=== PATIENT | female | born 1960 | race Caucasian/White ===

== ENCOUNTER 2025-06-02 09:27 | Observation (INO) | payer MEDICAID, SELFPAY ==
[2025-06-02] VITALS (8 sets, daily range): BP systolic 114–142; BP diastolic 70–88; PULSE 72–92; RESP 12–95; TEMP 36.7–37.1; O2SAT 95–99; BMI 29.0
--- NOTE | 2025-06-02 | XR_ITS ---
Examinations: MRI Brain without intravenous contrast. MRA brain without intravenous contrast. MRA carotids without intravenous contrast 3-D vascular reconstructions Date and time of exam: 06/02/2025, 4:05 p.m. Indication: History of multiple strokes. Altered mental status and new onset right facial droop. Fall on 05/30/2025 with progressive forgetfulness and generalized weakness over time. Technique: Multiple axial and sagittal images of the brain have been obtained MRA brain carotid images without contrast obtained, including 3-D postprocessing, vascular maximum intensity projection images Findings: Brain MRI: DWI is negative for acute or subacute ischemic infarction, abscess or other pathology. There is no evidence for acute or subacute intra-axial or extra-axial hemorrhage or mass. A very small focus of susceptibility in the medial left occipital lobe on SWI could potentially represent a small focus of chronic hemosiderin deposition. There is no corresponding calcification on the same day head CT. No midline shift or hydrocephalus. Redemonstration of generalized cerebral atrophy, and signal changes throughout the white matter of both treatment hemispheres that are nonspecific but most likely represent sequela of chronic ischemic microangiopathy in this age demographic. The signal changes correlate with the hypoattenuation in the white matter on the preceding head CT. Posterior fossa structures are intact and unremarkable. The major intracranial vascular flow voids are well-maintained. No concerning pituitary enlargement. MRA carotid images: Image quality is degraded by patient motion. However, the bilateral carotid arteries and vertebral arteries appear widely patent with intact flow related signal. Antegrade flow noted in both vertebral arteries. No aneurysmal dilatation. MRA brain images: Normal: No evidence for significant stenosis, branch occlusion, aneurysm or high flow vascular malformation involving the major arteries of the anterior and posterior circulation. Other: Severe left maxillary sinusitis with near complete T2 hyperintense signal due to mucosal hypertrophy throughout the left maxillary sinus. There is severe left sphenoid, ethmoid signal are present fluid signal is identified in the left-sided mastoid air cells which could be due to entrapped fluid or mucosal hypertrophy from prior inflammation. The calvarium and scalp are unremarkable. Impression: Brain MRI is negative for evidence for recent ischemic infarction, hemorrhage, or intracranial mass. No evidence for significant stenosis, occlusion or aneurysm related to the intracranial and extracranial circulation on MRA. Redemonstration of severe left-sided sinusitis. Chronic ancillary findings as above.
--- NOTE | 2025-06-02 09:39 | EKG_ITS ---
[facility] Test Date: 2025-06-02 Pat Name: YOKASTA PACHECO Department: Room: - Gender: Female Roll Grinder: : 1960 Requested By: Aida Chu Order Number: [id number] Reading MD: Aida Chu Measurements Intervals [place] Rate: 87 P: 61 OR: 152 QRS: -18 QRSD: 96 T: 59 QT: 372 QTc: 449 Interpretive Statements SINUS RHYTHM VOLTAGE CRITERIA FOR LVH [MEETS CRITERIA IN ONE OF: R(aVL), S(V1), R(V5), R(V5/V6)+S(V1)] NONSPECIFIC T-WAVE ABNORMALITY No previous ECG available for comparison /store/S0/[id number].pdf
--- NOTE | 2025-06-02 09:40 | PC.NURSE ---
[facility] facility pt. was ALMS this morning and having facial droop. Pt. able to state her name but unable to state her birthday and when asked where she was pt. stated [facility]. Informed pt. she was at [facility]. No s/s of distress and no facial droop at this time.
--- NOTE | 2025-06-02 09:43 | XR_ITS ---
CLINICAL INDICATION: altered, r/o aspiration pneumonia TECHNIQUE: XR chest 1V portable Exam date and time: 06/02/2025, 9:57 a.m. COMPARISON: Chest radiographs 04/21/2022 FINDINGS: The cardiomediastinal silhouette is within normal limits of size for portable technique. No evidence for acute congestive heart failure. Redemonstration of remote median sternotomy changes with aortic valve prosthesis in place. Retained epicardial leads noted. Hypoventilatory changes with otherwise no significant pleural-parenchymal abnormality. No airspace consolidation. No mass. No pleural effusion or pneumothorax. Degenerative changes of the skeletal structures. No apparent acute osseous abnormality. IMPRESSION: No radiographic evidence for acute cardiopulmonary abnormality. No evidence for aspiration pneumonia as questioned. Chronic ancillary findings as above. No significant change since prior exam. - This report was generated utilizing speech recognition software. -
--- NOTE | 2025-06-02 09:44 | EDNOTE_ITS ---
<Statement entered by Jolanta Thompson MD - 06/03/25 16:15> I, Jolanta Thompson MD, have reviewed the history, exam, and assessment of the patient. I have evaluated the patient independently and agree with the plan of care documented by [ ]. All diagnostic studies were reviewed and discussed. I confirm the diagnosis as documented by the Resident. I was present during the Medical Decision Making for this patient. The patient's plan of care was created between myself and the Resident and consistent with our discussion of the patient's case. Altered Mental Status RME/HPI General Chief Complaint: Altered Mental Status Stated Complaint: AMS Time Seen by Provider: 06/02/25 09:45 Arrival date/time: 06/02/25 09:27 RME / HPI RME / HPI narrative: cc: altered Patient is a 65 year old female with a past medical history of HTN, HLD, diabetes mellitus type 2 insulin dependent, history of CAD s/p bypass, history of asthma, hx of DVT and PE who is mostly non-ambulatory secondary to ge neralized weakness and requires a wheel chair who presented to the emergency room with via EMS with chief complain of altered mental status. [facility] was contacted as limited history was gathered from patient. Per nurse, Grady, at [facility], patient was noted to have a right facial droop this morning. Last well known time was 06/01/2025 at 9:00 PM. Patient at baseline is alert and orientated X 3. Stroke alert not activated as no focal neuro deficits noted on physical exam. Out of window. NIHSS 4 CT head ordered CMP, CBC, UA Related Data Home Medications ?Medication ?Instructions ?Recorded ?Confirmed acarbose 50 mg tablet 50 mg PO TIDWM Diabetes #0 t abs 10/23/15 04/16/19 glimepiride 4 mg tablet (Amaryl) 4 mg PO QAM Diabetes #0 tabs 10/23/15 04/16/19 metformin 1,000 mg tablet 1,000 mg PO BID Diabetes #0 tabs 10/23/15 04/16/19 (Glucophage) oxybutynin chloride 5 mg tablet 5 mg PO BID BLADDER CO NTROL #0 tabs 10/23/15 04/16/19 simvastatin 40 mg tablet (Zocor) 40 mg PO QPM High Cho lesterol #0 10/23/15 04/16/19 tabs trazodone 100 mg tablet 100 mg PO QDAY Depression #0 tabs 10/23/15 04/16/19 sertraline 100 mg tablet 100 mg PO QDAY 04/16/1903/30 Previous Rx's ?Medication ?Instructions ?Recorded ibuprofen 800 mg tablet 800 mg PO Q6H PRN pain #30 t abs 04/08/19 metformin 500 mg tablet 1,000 mg (2 x 500 mg) PO BID 30 04/21/22 days #120 tabs metformin 500 mg tablet 1,000 mg (2 x 500 mg) PO BID 30 04/22/22 days #120 tabs nitrofurantoin 100 mg PO BID #10 caps 04/22 monohydrate/macrocrystals 100 mg capsule (Macrobid) Allergies Allergy/AdvReac Type Severity Reaction Status Date / Time codeine Allergy Intermediate BURNING Verified 04/16/19 07:53 SENSATION (ALLERGY ONLY TO CODEINE TABLETS) Review of Systems Review of Systems Narrative Review of Systems: General appearance: NO weight change, NO fatigue, NO weakness, NO fever, NO chills, NO night sweats, No cough Skin: NO rash, NO itching, NO sores, NO moles HEENT: NO Trauma, NO nausea, NO vomiting, NO visual changes, NO blurry vision, NO double vision, NO tinnitus, NO vertigo, NO ear discharge, NO rhinorrhea, NO stuffiness, NO sneezing, NO allergy, NO epistaxis. NO Hoarseness, NO sore throat, NO swollen neck. Cardiac: NO Palpitations, NO dyspnea on exertion, NO orthopnea, NO paroxysmal nocturnal dyspnea, NO edema Respiratory: NO Shortness of Breath, NO Wheezing, NO Cough, NO Sputum, NO hemoptysis GI:NO appetite, NO nausea, NO vomiting, NO dysphagia, NO changes in bowel frequency, NO stool color, NO diarrhea, NO constipation, NO hemetemesis, NO hemorrhoids, NO melena, NO hematechezia, NO abdominal pain, NO jaundice Renal: NO frequency, NO hesitancy, NO urgency, NO hematuria, NO nocturia, NO inc ontinence MSK: NO muscle weakness, NO gout, NO arthritis, NO muscle stiffness Neuro: yes altered NO headaches, NO tremors, NO weakness, NO paralysis, NO seizures, NO loss of consciousness, NO numbness. Hem: NO anemia, NO easy bruising/bleeding, NO petechiae, NO purpura Endo: NO heat/cold intolerance, NO excessive sweating, NO polyuria, NO polydipsia, NO polyphagia, NO thyroid problems, NO diabetes Pysch: Yes mood ??possible sertraline use, NO anxiety, NO depression ED Exam Narrative Physical exam: General Appearance: Alert & Oriented X1, well-nourished female who is lying in bed in no acute distress HEENT: Skull symmetrical and atraumatic. Conjunctivae pin and moist. Pupils equal, round, reactive to light and accommodation (PERRL). External ear without lesion or discharge. Straight, nares patient, mucosa pink, no discharge. No thyroid nodule appreciated. No cervical lymphadenopathy. Cardio: Normal Rate and Rhythm with S1 and S2 heart sounds. No murmurs or extra heart sounds auscultated. No bruits on carotid auscultation. No peripheral edema or cyanosis. pulses 3+ Lungs: Symmetric with good expansion. Chest and back non-tender. Breath sounds vesicular without crackles, wheezing or rhonchi Abdomen: Non-tender, Non-distended, Normal Reactive Bowel Sounds Neuro: Yes Alert, Yes cooperative, yes oriented to person, NO place, and NO time. CN grossly intact. Upper motor strength 5/5 and Lower motor strength 3/5, bilateral general weakness. Sensation intact. No facial drop noted. Course Quality Measures VTE prophylaxis (aspirin ) Orders Category Date Time Status Admit to Inpatient Status Routine Admission 06/02/25 12:21 Active Patient Condition Routine Admission 06/02/25 12:20 Ordered Aspiration precautions NOW Care 06/02/25 12:21 Active Bedside Blood Glucose NOW Care 06/02/25 09:39 Active Bladder Scan NEEDED Care 06/02/25 10:06 Active Electrophysiology Nurse Practitioner NOW Care 06/02/25 09:39 Active Continuous Pulse Oximetry NOW Care 06/02/25 09:39 Active EKG (ED ONLY) *Do not use* NOW Care 06/02/25 09:39 Completed Insert IV NOW Care 06/02/25 09:39 Active NPO NOW Care 06/02/25 09:39 Active NPO NOW Care 06/02/25 12:21 Active Neuro Check Q4H Care 06/02/25 12:20 Active Notify provider NEEDED Care 06/02/25 12:20 Active Nurse Swallow Screen X1 Care 06/02/25 09:40 Active Strict Intake and Output Routine Care 06/02/25 12:21 Ordered Diet NPO (NOW) Diet 06/02/25 12:[address] head/brain wo con Stat Exams 06/02/25 10:07 Completed EKG (ED Only) Stat Exams 06/02/25 09:39 Draft XR chest 1V portable Stat Exams 06/02/25 09:43 Completed Acetaminophen Stat Lab 06/02/25 09:48 Completed Alcohol, Blood Medical Stat Lab 06/02/25 09:48 Completed Ammonia Stat Lab 06/02/25 09:48 Completed Arterial Blood Gas Stat Lab 06/02/25 10:41 Ordered Blood Culture (Lab) Stat Lab 06/02/25 09:43 Received CBC Stat Lab 06/02/25 09:48 Completed Comprehensive Metabolic Panel Stat Lab 06/02/25 09:48 Completed Drug Screen,Urine Stat Lab 06/02/25 09:51 Completed Magnesium Stat Lab 06/02/25 09:48 Completed Partial Thromboplastin Time Stat Lab 06/02/25 09:48 Completed Prothrombin Time with INR Stat Lab 06/02/25 09:48 Completed Thyroid Stimulating Hormone Stat Lab 06/02/25 09:48 Completed Troponin I Stat Lab 06/02/25 09:48 Completed Urinalysis, C/S if Indicated Stat Lab 06/02/25 09:51 Completed Urine Culture Routine Lab 06/02/25 11:53 Ordered Acetaminophen Tab [Tylenol Tab] Med 06/02/25 12:20 Active 650 mg PO Q6H PRN Aspirin Med 06/02/25 11:13 Discontinued 325 mg PO X1 ONE Heparin Inj Med 06/02/25 12:30 Active 5,000 unit SC Q12HR INSULIN LISPRO (AdmeLOG) [HumaLOG] Med 06/02/25 11:01 Discontinued 3 unit SC X1 ONE Ondansetron Inj [Zofran Inj] Med 06/02/25 12:20 Active 4 mg IVP Q6H PRN Code Status Routine Oth 06/02/25 12:20 Ordered Oxygen Delivery NOW RT 06/02/25 09:39 Active Oxygen Delivery PRN RT 06/02/25 12:20 Active Vital Signs Vital signs: Vital Signs Temperature 98.0 F 06/02/25 09:30 Pulse Rate 90 06/02/25 09:30 Respiratory Rate 20 06/02/25 09:30 Blood Pressure 124/70 06/02/25 09:30 Pulse Oximetry (%) 96 06/02/25 09:30 Oxygen Delivery Method Nasal Cannula 06/02/25 09:30 Oxygen Flow Rate 2 06/02/25 09:30 Altered Mental Status Patient data External records reviewed:: [facility] previous records and Assisted records Clinical information provided by:: [facility] and diplomatic interpreter [facility] Social determinants that could affect healthcare access:: none Patient has the following chronic illnesses:: HTN HLD Diabetes How is presenting disease/condition affected by chronic disease/condition?: uneffected by Evaluation data The following diagnostics were reviewed and interpreted by me:: lab results, radiology exam(s) and EKG tracing(s) Lab and/or radiology exams considered but not ordered:: none Interpretation Summary: CBC and CMP unremarkable, CT negative for acute hemorrhage and noted micro- vascular changes. Suprapubic tenderness. UA positive Medications / Prescriptions Medications or Prescriptions considered but not ordered:: none Medication administrations:: Medication Administration History Acetaminophen (Acetaminophen 325 Mg Tablet) 650 mg PO Q6H PRN PRN Reason: Fever >100.4, Pain 1-3 Stop: 07/02/25 12:19 Heparin Sodium (Porcine) (Heparin Sod Inj 5000 Unit/Ml Vial) 5,000 unit SC Q12HR ILDA Stop: 06/16/25 12:29 Ondansetron HCl (Ondansetron Inj 2 Mg/Ml Inj 2 Ml) 4 mg IVP Q6H PRN; Protocol PRN Reason: NAUSEA OR VOMITING Stop: 07/02/25 12:19 Discontinued Medications Aspirin (Aspirin 325 Mg Tablet) 325 mg PO X1 ONE Stop: 06/02/25 11:14 Last Admin: 06/02/25 11:24 Dose: 325 mg Documented By: ED Insulin Human Lispro (Insulin Lispro (Admelog) 1 Unit/0.01 Ml Unit) 3 unit SC X1 ONE Stop: 06/02/25 11:02 Last Admin: 06/02/25 11:27 Dose: 3 unit Documented By: ED Co-signed By: SAMY same as above Consultations Consultation(s) initiated? (list below): No Diagnosis Differential diagnosis altered mental status: altered mental status, dementia and other Most likely diagnosis given after review of the tests above:: Acute Encephalopathy, likley secondary to UTI Admission Indicated Admission indicated?: indicated Explain why admission is indicated or not indicated:: Acute encephalopathy, patient continues to be altered. Admission Request Was there a request for admission?: Yes Admission Attestation Admission request attestation: Discussed case with Dr. Andrew, PGY-2, from Hospitalist service regarding admissio n. Discussed patients ED course, exam findings, labs, and radiology results. The Hospitalist [agrees,declines] to accept the patient for admission. Disposition Plan Disposition Plan: Admit Discharge Plan Plan Patient Disposition: Admit Acute Care w/in Hospital Patient condition on transfer: Stable Prescriptions/Referrals Prescriptions/Med Rec: No Action acarbose 50 MG tablet 50 mg PO TIDWM Qty: 0 simvastatin [Zocor] 40 MG tablet 40 mg PO QPM Qty: 0 trazodone 100 mg Tablet 100 mg PO QDAY Qty: 0 metformin [Glucophage] 1,000 MG tablet 1,000 mg PO BID Qty: 0 glimepiride [Amaryl] 4 MG tablet 4 mg PO QAM Qty: 0 oxybutynin chloride 5 MG tablet 5 mg PO BID Qty: 0 ibuprofen 800 mg tablet 800 mg PO Q6H PRN (Reason: pain) Qty: 30 0RF sertraline 100 mg tablet 100 mg PO QDAY metformin 500 mg tablet 1,000 mg PO BID 30 Days Qty: 120 1RF nitrofurantoin monohyd/m-cryst [Macrobid] 100 mg capsule 100 mg PO BID Qty: 10 0RF Rx Instructions: must administer with a meal/food metformin 500 mg tablet 1,000 mg PO BID 30 Days Qty: 120 1RF Problem List Clinical Impression: Altered mental status, UTI (urinary tract infection) Patient/Caregiver Discharge Instructions Print Language: Uzbek Stand Alone Forms: Jaymie Award Info., Patient Portal Info Letter
[2025-06-02 10:01] LABS: Basophils # (Auto) 0.0 Thou/mm3 (0.0-0.2); Basophils % (Auto) 0 % (0-2.5); Eosinophils # (Auto) 0.0 Thou/mm3 (0.0-0.5); Eosinophils % (Auto) 0 % (0-10); Hematocrit 36.7 % (36.0-46.0); Hemoglobin 11.7 g/dL (12.0-16.0); Immature Granulocytes Auto 0.02 Thou/mm3 (0.00-0.00); Lymphocytes # (Auto) 2.0 Thou/mm3 (1.0-4.8); Lymphocytes % (Auto) 26 % (10-50); Mean Corpuscular HGB Conc 31.9 g/dl (31.0-37.0); Mean Corpuscular Hemoglobin 26.2 pg (25.0-35.0); Mean Corpuscular Volume 82 fL (80-100); Monocytes # (Auto) 0.6 Thou/mm3 (0.0-0.8); Monocytes % (Auto) 7 % (0-12); Neutrophils # (Auto) 5.1 Thou/mm3 (1.8-7.7); Neutrophils % (Auto) 66 % (37-80); Nucleated Red Blood Cell # 0.00 Thou/mm3 (0.00-0.00); Nucleated Red Blood Cell % 0 /100 WBC (0); Platelet Count 156 Thou/mm3 (140-440); RDW Standard Deviation 42.5 fL (36.4-46.3); Red Blood Count 4.46 Miln/mm3 (4.00-5.20); White Blood Count 7.7 Thou/mm3 (3.6-11.0)
--- NOTE | 2025-06-02 10:07 | XR_ITS ---
Examination: CT brain head without contrast. 2-D sagittal coronal reconstructions Date and time of exam: 06/02/2025, 10:23 a.m. INDICATION: AMS today COMPARISON: None CTDI: vol (mGy): 47.3 DLP: (mGycm): 943 Technique: Multiple CT axial sections of the brain have been obtained, 5 mm slice thickness. Contrast has not been administered. 2-D sagittal, coronal reconstructions have been obtained Low dose protocols were performed. One or more of the following dose reduction techniques were used; automated exposure control, adjustment of the mA and/or KV according to patient size, use of iterative reconstruction technique. FINDINGS: BRAIN PARENCHYMA: No evidence for acute large vessel transcortical ischemic infarction, hemorrhage, mass, or midline shift. Global cerebral involutional changes are present. Nonspecific cerebral white matter hypoattenuation most likely represents sequela of chronic ischemic microangiopathy in this age demographic. No cerebellar tonsillar ectopia. No apparent acute abnormality of the cerebellum. VENTRICLES / EXTRA-AXIAL SPACES: No hydrocephalus, extra-axial hematoma or mass. CALVARIUM: No skull fracture or concerning focal lesion. Hyperostosis frontalis interna noted. SINUSES: Severe left-sided sinusitis is present, including extensive complete opacification of the left-sided ethmoid air cells and hypoplastic left frontal sinus and left sphenoid sinus, the latter exhibiting thickened sclerotic angelo, and severe near complete opacification of the left maxillary sinus. Very mild mucus-like density and mucosal hypertrophy are visualized in the right maxillary sinus. Predominately rightward-deviated nasal septum is present. no evidence for diffuse confluent mastoid effusions or abnormal middle ear opacification. OTHER EXTRACRANIAL STRUCTURES: No findings of acute significance. IMPRESSION: Negative noncontrast head CT for acute intracranial abnormality. Global cerebral atrophy and likely chronic ischemic microangiopathy in the cerebral spheres. Bilateral sinus disease, most severe and diffuse throughout the left-sided paranasal sinuses as described.
[2025-06-02 10:09] LABS: Collection Type, Urine Clean Catch
[2025-06-02 10:20] LABS: Amphetamine/Methamp Scrn,U Negative (Negative); Barbiturate Screen,Urine Negative (Negative); Benzodiazepines Screen,Urine Negative (Negative); Benzoylecgonine Screen, Ur Negative (Negative); Fentanyl Screen,Urine Negative (Negative); Opiate Screen,Urine Positive (Negative); THC Screen,Urine Negative (Negative)
[2025-06-02 10:20] LABS: INR 1.1 (0.9-1.3); Partial Thromboplastin Time 35.3 Seconds (22.0-36.0); Prothrombin Time 11.3 Seconds (9.0-12.2)
[2025-06-02 10:26] LABS: Ammonia < 10 uMol/L (11-32)
[2025-06-02 10:33] LABS: Acetaminophen 7.8 mcg/mL (10.0-20.0); Alanine Aminotransferase 10 U/L (10-49); Albumin, Serum 4.5 gm/dL (3.4-4.8); Albumin/Globulin Ratio 1.8 (1.2-2.2); Alcohol, Blood Medical < 3.0 mg/dL (0-10.0); Alkaline Phosphatase 133 U/L (46-116); Anion Gap 7 (7-16); Aspartate Amino Transferase 12 U/L (0-34); BUN/Creatinine Ratio 13 Ratio (12-20); Bilirubin,Total 0.3 mg/dL (0.3-1.2); Blood Urea Nitrogen 16 mg/dL (9-23); Calcium 9.3 mg/dL (8.3-10.6); Calcium (Corrected) 9.3 mg/dL (8.5-10.1); Carbon Dioxide 26.3 mMol/L (20.0-31.0); Chloride 102 mMol/L (98-107); Creatinine (Component) 1.2 mg/dL (0.6-1.3); Estimated Creatinine Clearance 51.0 mL/min (>60); Globulin 2.5 gm/dL (2.3-3.5); Glucose 325 mg/dL (74-106); Magnesium 1.7 mg/dL (1.6-2.6); Osmolality,Calculated 284 (275-295); Potassium 4.7 mMol/L (3.4-5.1); Sodium 135 mMol/L (136-145); Thyroid Stimulating Hormone 2.33 uIU/mL (0.55-4.78); Total Protein 7.0 gm/dL (5.7-8.2); Troponin I < 0.020 ng/mL (0.0-0.045); eGFR 51 See Note
[2025-06-02 10:37] LABS: Bilirubin,Urine Negative (Negative); Blood,Urine Negative (Negative); Clarity,Urine Clear (Clear/Hazy); Color,Urine Yellow (Lt Yel-Yel); Culture Indicated,Urine Not Indicated; Glucose, Urine 2+ (Negative); Ketones,Urine Negative (Negative); Leukocyte Esterase,Urine Positive (Negative); Nitrite,Urine Negative (Negative); PH,Urine 5.5 (5.0-7.0); Protein,Urine Trace (Neg - Trace); RBC,Urine 2 /hpf (0-3); Specific Gravity,Urine 1.026 (1.001-1.035); Squamous Epithelial Cell,Urine 2 /hpf (0-5); Urobilinogen,Urine Negative mg/dL (0.0-1.0); WBC,Urine 6 /hpf (0-5)
[2025-06-02] MEDS: INSULIN LISPRO (AdmeLOG) 1 UNIT/0.01 ML UNIT 3 UNIT SC (11:27)
--- NOTE | 2025-06-02 11:47 | PC.NURSE ---
Pt. son is bedside and wants coffee, coffee given. Warm blanket given to pt.
--- NOTE | 2025-06-02 12:14 | PC.NURSE ---
Dr. Poole is bedside talking with pt. and pt.'s son.
[2025-06-02] MEDS: HEPARIN SOD INJ 5000 UNIT/ML VIAL SC (12:51)
--- NOTE | 2025-06-02 13:22 | ESHP_ITS ---
<Statement entered by Rekha Fernandes MD - 06/03/25 06:16> Patient was seen and examined at bedside. I agree on the assessment and plan on this note as documented by resident Sukh Quiros DO PGY1. 65-year-old female with past medical history of CAD status post CABG, 4 CVAs in the past, hypertension, hyperlipidemia, diabetes mellitus type 2, history of DVT and PE on Eliquis presented from detention facility for evaluation of altered mental status and suspected right-sided facial droop, patient seen at bedside alert and oriented x 3, patient's son at bedside assisted in procuring history per son patient's condition has deteriorated since her CVAs in the past and she is currently at baseline, there is some concern of suprapubic tenderness per emergency department however none noted on physical exam, patient denies any burning pain/dysuria, urine analysis relatively benign however does have elevated WBC count and leukocyte esterase positive, we will treat with antibiotics empirically. Will obtain MRI to rule out any acute CVA as well however there is low suspicion of stroke, will obtain improved blood glucose control as patient was significantly hyperglycemic with blood glucose 325 on presentation. Resumed home dose sertraline, will hold trazodone, resume home dose Eliquis, started on home dose aspirin and atorvastatin. Will continue to monitor patient overnight, if stable will be discharged in a.m. Pending physical therapy and speech therapy evaluation. Echo is negative for bubble study. Case discussed with attending Dr. Dorian Alfaro MD PGY-2 Documentation for date of: 06/02/25 HPI History of Present Illness History of present illness: History of Present Illness: Dea Valencia is 65 year old female with PMH of hx of multiple strokes, HTN, HLD, diabetes mellitus type 2 insulin dependent, history of CAD s/p bypass, history of asthma, hx of DVT and PE, presented to the ED from a rehabiliation facility for evaulation of altered mental status and new-onset right facial droop. Per patient's son, she experienced a fall on wednesday 05/30 and reports progressive forgetfulness and generalized weakness over time. The right facial droop has not occurred previously. At baseline, the patient is alert and oriented x3. Denies chest pain, palpation, SOB, abdominal pain, N/V, fevers or chills. Patient was admitted for management of altered mental status and stroke work-up ED Course: Vitals: 98.0 F, HI 90, RR 20, BP 124/70, 96% O2 saturation on 2 L nasal cannula. Labs: WBC 7.7, Hgb 11.7, PT 11.3 potassium 4.7, anion gap 7, glucose 325, eGFR 51, HbA1c 9.6, TSH 2.33, troponin <0.020 UA: Clear yellow urine, urine glucose 2+, urine nitrate negative, urine leukocyte esterase positive, urine WBC 6, urine bacteria none. Urine toxicology: Urine opiates positive CXR (06/02/2025): negative Head CT (06/02/2025): Negative for acute hemorrhage, mass or midline shift, Global cerebral atrophy and likely chronic ischemic microangiopathy in the cerebral spheres. -In ED, patient received Acetaminophen 650mg po q6hr, Aspirin 325 mg po x1, Insulin lispro 3 nits SC x1, Ondansetron 4mg IV q6hr prn Medical history: As stated above Surgical history: CAD w/ CABG Allergies: Codeine Medications: Trazodone HCL 100mg po qd for depression, Simvastatin 40mg po qd, [place] 5 q4hr prn, Apixaban 5mg po bid, Sertraline 100mg po qd, Aspirin 81mg po qd, Ondansetron 4mg po q6hr prn Family history: Noncontributory, But patient is poor historian Social history: Denies smoking cigarettes, drinking alcohol or using other illicit drugs Review of Systems Review of Systems Narrative Review of Systems: All 12 systems assessed and the patient denies unless otherwise stated in HPI Exam Vital Signs Temp Pulse Resp BP Pulse Ox O2 Del Method O2 Flow Rate 98.1 F 86 12 122/88 H 96 Room Air 2 06/02/25 12:17 06/02/25 12:17 06/02/25 12:17 06/02/25 12:17 06/02/25 12:17 06/02/25 12:17 06/02/25 09:30 Narrative Exam General: Elderly, Frail, limited communication, AAO x2 Eye: Normal conjunctiva, no scleral icterus HENT: Normocephalic, atraumatic, hearing intact to conversation at normal volume, moist oral mucosa Neck: Supple, non-tender, no JVD, no lymphadenopathy Lungs: Non-labored respirations, symmetric chest rise, Clear to auscultate bilaterally, No wheezing, rhonchi, crackles Heart: Peripheral pulses intact bilaterally, Regular Rate and Rhythm. Abdomen: Soft, non-tender, non-distended, no palpable masses Musculoskeletal: No cyanosis or edema, No visible joint swelling Skin: Skin is warm, dry, no rashes or lesions. Psychiatric: Cooperative, appropriate mood and affect, Awake and alert, not agitated Neuro: Cranial nerves II-XII grossly intact. Strength 3/5 throughout. Sensations intact to light touch. Results: Labs 06/02/25 09:48 06/02/25 09:48 Labs: Short CBC 06/02/25 Range/Units 09:48 WBC 7.7 (3.6-11.0) Thou/mm3 Hgb 11.7 L (12.0-16.0) g/dL Hct 36.7 (36.0-46.0) % Plt Count 156 (140-440) Thou/mm3 BMP 06/02/25 09:48 Sodium 135 L Potassium 4.7 Chloride 102 Carbon Dioxide 26.3 BUN 16 Creatinine 1.2 Glucose 325 H Calcium 9.3 Cardiac Enzymes 06/02/25 Range/Units 09:48 Troponin I < 0.020 (0.0-0.045) ng/mL Liver Function 06/02/25 Range/Units 09:48 Total Bilirubin 0.3 (0.3-1.2) mg/dL AST 12 (0-34) U/L ALT 10 (10-49) U/L Alkaline Phosphatase 133 H (46-116) U/L Albumin 4.5 (3.4-4.8) gm/dL Urine 06/02/25 Range/Units 09:51 Urine Color Yellow (Lt Yel-Yel) Urine Clarity Clear (Clear/Hazy) Urine pH 5.5 (5.0-7.0) Ur Specific Glenn 1.026 (1.001-1.035) Urine Protein Trace (Neg - Trace) Urine Glucose (UA) 2+ A (Negative) Quality Measures Quality Measures VTE prophylaxis (aspirin ) Medications Home Medications and Allergies Home Medications ?Medication ?Instructions ?Recorded ?Confirmed ?Type acarbose 50 mg tablet 50 mg PO TIDWM Diabetes #0 t abs 10/23/15 04/16/19 History glimepiride 4 mg tablet (Amaryl) 4 mg PO QAM Diabetes #0 tabs 10/23/15 04/16/19 History metformin 1,000 mg tablet 1,000 mg PO BID Diabetes #0 tabs 10/23/15 04/16/19 History (Glucophage) oxybutynin chloride 5 mg tablet 5 mg PO BID BLADDER CO NTROL #0 tabs 10/23/15 04/16/19 History simvastatin 40 mg tablet (Zocor) 40 mg PO QPM High Cho lesterol #0 10/23/15 04/16/19 History tabs trazodone 100 mg tablet 100 mg PO QDAY Depression #0 tabs 10/23/15 04/16/19 History sertraline 100 mg tablet 100 mg PO QDAY 04/16/1903/30 History Allergies Allergy/AdvReac Type Severity Reaction Status Date / Time codeine Allergy Intermediate BURNING Verified 04/16/19 07:53 SENSATION (ALLERGY ONLY TO CODEINE TABLETS) Visit Medications Acetaminophen (Acetaminophen 325 Mg Tablet) 650 mg PO Q6H PRN PRN Reason: Fever >100.4, Pain 1-3 Stop: 07/02/25 12:19 Heparin Sodium (Porcine) (Heparin Sod Inj 5000 Unit/Ml Vial) 5,000 unit SC Q12HR ILDA Stop: 06/16/25 12:29 Last Admin: 06/02/25 12:51 Dose: 5,000 unit Ondansetron HCl (Ondansetron Inj 2 Mg/Ml Inj 2 Ml) 4 mg IVP Q6H PRN; Protocol PRN Reason: NAUSEA OR VOMITING Stop: 07/02/25 12:19 Discontinued Medications Aspirin (Aspirin 325 Mg Tablet) 325 mg PO X1 ONE Stop: 06/02/25 11:14 Last Admin: 06/02/25 11:24 Dose: 325 mg Insulin Human Lispro (Insulin Lispro (Admelog) 1 Unit/0.01 Ml Unit) 3 unit SC X1 ONE Stop: 06/02/25 11:02 Last Admin: 06/02/25 11:27 Dose: 3 unit Assessment & Plan Plan Dea Valencia is 65 year old female with PMH of hx of multiple strokes, HTN, HLD, diabetes mellitus type 2 insulin dependent, history of CAD s/p CABG, history of asthma, hx of DVT and PE, presented to the ED from a rehabilitation facility for evaluation of altered mental status and new-onset right facial droop. Patient was admitted for management of altered mental status and stroke work-up #Acute on chronic encephalopathy #Stroke r/o #Hx of multiple strokes -Ddx includes, recurrent ischemic stroke, TIA, Vascular dementia, polypharmacy, Hyperglycemia, Delirium superimposed on dementia, depression -Patient's son reported progressive worsening of patient's forgetfulness and weakness. -An episode of fall at rehab -Patient didn't have facial droop on examination -Glucose: 325, HbA1c: 9.6, TSH 2.33, Troponin <0.020 -CT head w/o: negative for acute hemorrhage, mass effect, midline shift Plan: -ECHO w/ bulbble study pending, -Blood Cx pending -MRI and MRA without contrast pending -Eliquis 5mg po bid, Aspirin 81mg po qd, and Atorvastatin 80mg po qd. -Consulted neurology, Dr. Bass, appreciate recommendations -Neuro check q4hr -Aspiration precautions, -Referred PT, and speech eval. #Insulin dependent Type 2 Diabetes Mellitus -Takes insuline glargine 15 units -On admission, HbA1c: 9.6, and Glucose : 325 Plan: - Started on insulin degludec 10 units HS - Insulin Sliding Scale - Monitor glucose and insulin requirements tomorrow, will adjust accordingly #Asthma -DuoNeb q6hrrt prn #Hx of DVT and PE -Restarted Home med Eliquis 5mg po bid #Hx of CAD s/p CABG -Restarted her home med Aspirin 81mg po qd -Started on Atorvastatin 80mg po qd. #HLD -Started on Atorvastatin 80mg po qd. #Hx Depression -Will start her home med Sertraline tomorrow -Will hold Trazodone. Disposition: Tele med Diet: Low carb consistent GI prophylaxis: None DVT prophylaxis: Eliquis 5mg po bid Code: FULL Assessment and plan discussed with my attending physician Dr. Poole and Dr. Fernandes (PGY-2) Dr. Quiros (PGY-1) - Internal medicine resident Attending Provider Attestation/Addendum I or my resident physicians have discussed care with the ED physician and I have made the decision to admit. I have discussed and was present for the essential components of the history, physical examination, diagnosis, and treatment plan with the resident. I agree with the patient's care as documented by the resident and amended herein by me. Garo Poole DO. Although this document has been carefully reviewed, there may still be some phonetic and other typographical errors. These errors are purely grammatical due to imperfections in the software program and should not be construed in any way to compromise the substance of the patient's medical care during this visit. Patient seen and evaluated in the ED. In short, 65-year-old female with significant past medical history of multiple CVAs, hyperlipidemia, DM2, hypertension, history of CABG, asthma, DVT and PE on Eliquis and aspirin, presented to the ED for acute encephalopathy. Per the patient's son who was at bedside, she is at her baseline at present however was off yesterday and seemed to have worsening mentation. At baseline she is reported to be alert and oriented x 3, she was in the ED able to hold a conversation with us, the ED staff did not feel a stroke workup was necessary and suspected possible UTI considering suprapubic tenderness, I somewhat tend to agree, I am not convinced this is an acute stroke at this time although she does have a significant history of stroke and was on aspirin and Eliquis at home. Seems more metabolic in nature although urinalysis is not very impressive, we will perform urine culture at this time, start the patient on antibiotics for possible UTI and obtain further brain imaging to assess any acute and chronic intracranial pathology. Blood cultures were also drawn in the ED and are pending. Neurology has also been consulted, physical therapy and speech evaluation is also been ordered. Continue monitor closely while she is here
--- NOTE | 2025-06-02 14:18 | ECHO_ITS ---
Patient Info Name: Dea Vale Age: 65 years : 1960 Gender: Female Ht: 168 cm Wt: 82 kg BSA: 1.97 m2 BP: 122 / 88 mmHg HR: 80 bpm Exam Date: 06/02/2025 2:36 PM Admit Date: 06/02/2025 Site: [facility] Room Number: ED Patient Status: I Exam Type: CA echo doppler complete Director Of Coding: Jeniffer Sarabia Ordering Physician: Deni Quiros Study Info Indications CVA workup - Contrast/Agitated Saline Contrast/Ag. Saline: Agitated Saline Amount: --- ml Primary Location: [facility] Left Ventricular Outflow Tract Name Value Normal LVOT 2D LVOT Diameter 1.9 cm LVOT Doppler LVOT Peak Velocity 159 cm/s LVOT Mean Gradient 5 mmHg LVOT VTI 28 cm LVOT VTI/AV VTI Ratio 0.6 LVOT Stroke Volume 80 ml Pulmonic Valve Name Value Normal PV Doppler PV Peak Velocity 119 cm/s PV Regurgitation Doppler NC Peak End Diastolic Velocity 176 cm/s Mitral Valve Name Value Normal MV Doppler MV Decel [place] 339 cm/s2 MV PHT 60 ms MV Area (PHT) 3.6 cm2 4.0-5.0 MV Diastolic Function MV E Peak Velocity 70 cm/s MV A Peak Velocity 93 cm/s MV E/A 0.8 MV Annular TDI MV Septal e' Velocity 4.1 cm/s MV E/e' (Septal) 17.0 MV Lateral e' Velocity 5.9 cm/s MV E/e' (Lateral) 12.0 MV e' Average 5.00 cm/s MV E/e' (Average) 14.5 Tricuspid Valve Name Value Normal TV Regurgitation Doppler TR Peak Velocity 252 cm/s Estimated PAP/RSVP RA Pressure 3 mmHg <=5 PA Systolic Pressure 28 mmHg <36 RV Systolic Pressure 28 mmHg <36 Aortic Valve Name Value Normal AV Doppler AV Peak Velocity 238 cm/s AV Mean Gradient 11 mmHg AV VTI 49 cm AV Area (Cont Eq VTI) 1.6 cm2 >=3.0 AV Area (Cont Eq Brent) 1.9 cm2 AV DI (Brent) 0.67 AV Regurgitation 2D LVOT Area 2.8 cm2 Ventricles Name Value Normal LV Dimensions 2D/MM IVS Diastolic Thickness (2D) 0.9 cm 0.6-0.9 LVID Diastole (2D) 3.0 cm 3.8-5.2 LVIW Diastolic Thickness (2D) 0.9 cm 0.6-0.9 LVID Systole (2D) 2.2 cm 2.2-3.5 LVOT Diameter 1.9 cm LV Mass (2D Cubed) 70.15 g 67.00-162.00 LV Mass Index (2D Cubed) 36 g/m2 43-95 Relative Wall Thickness (2D) 0.60 <=0.42 IVS/LVIW Diastolic Thickness (2D) 1.00 0.00-1.50 LV Fractional Shortening/Ejection Fraction 2D/MM LV Fractional Shortening (2D) 27 % 27-45 LV EF (2D Teichholz) 54 % Atria Name Value Normal LA Dimensions LA Volume (4C A-L) 40 ml LA Volume (BP A-L) 39 ml Left Ventricle Left ventricular chamber dimension is normal. Left ventricular systolic function is normal with visually estimated ejection fraction of 50-55%. There is normal geometry noted in the left ventricle. The apical septum, and apical lateral wall are hypokinetic. The inferior wall, anterior wall, basal inferoseptal, mid inferoseptal, basal anterolateral wall, mid anterolateral wall, basal anteroseptal, mid anteroseptal, basal inferolateral wall, and mid inferolateral wall are not scored. Left ventricular segmental wall motion is abnormal. There is grade I diastolic dysfunction in the left ventricle. Right Ventricle Right ventricular chamber dimension is normal. Right ventricular systolic function is normal. Left Atrium Left atrial chamber dimension is normal. Right Atrium Right atrial chamber dimension is normal. Aortic Valve The aortic valve is trileaflet. There is mild aortic valve stenosis with a peak velocity of 238 cm/s, mean gradient of 11 mmHg, and aortic valve area of 1.6 cm2. There is mild aortic valve regurgitation. Pulmonic Valve The pulmonic valve is normal. There is no pulmonic valve stenosis. There is no pulmonic regurgitation. Mitral Valve The mitral valve has normal leaflets. There is no mitral valve stenosis. There is mild mitral valve regurgitation. Tricuspid Valve The tricuspid valve leaflets are normal. There is no tricuspid valve stenosis. There is mild tricuspid valve regurgitation. No pulmonary hypertension, estimated pulmonary arterial systolic pressure is 28 mmHg and systemic blood pressure of 122 mmHg in systole. Pericardium/Pleural The pericardium appears normal. There is no pericardial effusion. No pleural effusion visualized. Inferior Vena Cava Normal inferior vena cava with >50% collapse upon inspiration consistent with normal right atrial pressure, 3 mmHg. Aorta The aortic measurements are indexed to age and body surface area. The aortic root at the sinus of Valsalva is not well visualized. The prox ascending aorta is not well visualized. Summary 1. Bubble study negative for any PFO or ASD. Consider MANDY if high index of clinical suspicion. 2. Left ventricle size is normal and systolic function is normal. Estimated ejection fraction is 50-55%. There is grade I diastolic dysfunction. 3. Right ventricle chamber size is normal and systolic function is normal. Estimated RVSP is 28 mmHg. 4. There is mild aortic valve stenosis with a peak velocity of 238 cm/s, mean gradient of 11 mmHg, and aortic valve area of 1.6 cm2. 5. Mild MR, TR and AI. 6. Normal IVC with estimated RA pressure 3 mmHg. Report Signatures Finalized by Francis Nelson on 06/02/2025 04:02 PM
[2025-06-02 14:35] LABS: Glucose Estimated Average 229 mg/dL (80-131); Hemoglobin A1C 9.6 % Hgb (4.8-6.0)
--- NOTE | 2025-06-02 14:59 | PC.NURSE ---
US is bedside doing US on pt.'s heart.
[2025-06-02 16:31] LABS: Folate 17.94 ng/mL (>5.38); Vitamin B12 745 pg/mL (211-911)
[2025-06-02] MEDS: INSULIN DEGLUDEC 5 UNIT/0.05 ML (PER 5 UNITS) 10 UNIT SC (18:07)
[2025-06-02] MEDS: INSULIN LISPRO (AdmeLOG) 1 UNIT/0.01 ML UNIT SC ×2 (18:09→21:23)
[2025-06-02] MEDS: cefTRIAXone/D5w 1gm IV premix 1 GM/50 ML BAG IV (18:13)
--- NOTE | 2025-06-02 18:21 | PC.NURSE ---
Pt. eating dinner, son at bedside, pt. tolerating well.
[2025-06-02] MEDS: ALBUTEROL/IPRATROPIUM (Duoneb) RT SOL 3 ML NEBU INH (19:10)
[2025-06-02] MEDS: ATORVASTATIN CALCIUM 20 MG TABLET 80 MG PO (21:17)
[2025-06-02] MEDS: APIXABAN 2.5 MG TABLET 5 MG PO (21:17)
[2025-06-03] VITALS (10 sets, daily range): BP systolic 123–144; BP diastolic 56–92; PULSE 66–101; RESP 14–98; TEMP 35.9–36.3; O2SAT 97–100; BMI 29.9; BMI 11.0
[2025-06-03] MEDS: ALBUTEROL/IPRATROPIUM (Duoneb) RT SOL 3 ML NEBU INH (06:42)
[2025-06-03] MEDS: ASPIRIN EC 81 MG TABEC PO (08:38)
[2025-06-03] MEDS: APIXABAN 2.5 MG TABLET 5 MG PO ×2 (08:38→20:35)
[2025-06-03] MEDS: cefTRIAXone/D5w 1gm IV premix 1 GM/50 ML BAG IV (08:38)
[2025-06-03] MEDS: INSULIN LISPRO (AdmeLOG) 1 UNIT/0.01 ML UNIT SC ×2 (08:39→12:30)
[2025-06-03] MEDS: INSULIN DEGLUDEC 5 UNIT/0.05 ML (PER 5 UNITS) 15 UNIT SC (09:18)
--- NOTE | 2025-06-03 14:01 | PC.PT ---
PT eval only. Patient is at her PLOF as she is bedbound/wheelchair bound and dependent with all transfers. Patient is at her baseline. RN made aware.
--- NOTE | 2025-06-03 14:10 | ESDS_ITS ---
<Statement entered by Clement Jaime MD - 06/03/25 17:32> Patient seen and examined at bedside. I discussed and supervised with the operations intern physician who took care of this patient. I personally saw and examined the patient. I agree with most of the assessment and plan. Plan of care discussed with attending Dr. Poole. Clement Jaime MD PGY-2 Planned Discharge Date 06/03/25 DS: Providers Provider Date of admission: 06/02/25 12:21 Primary care physician: Lucille Jacob MD Admitting Provider: Dorian Poole DO Attending Provider on Admission: Dorian Poole DO Consults: 06/02/25 14:03 Consult to Neurology / Tele-Neurology Routine Comment: AMS w/ episode of fall and hx of multiple stroke Consulting Provider: Duane Bass 06/02/25 14:11 Referral Physical Therapy Routine Comment: Physician Instructions: 06/02/25 14:20 Referral Speech Therapy Routine Comment: Attending Provider on DC: Deni Quiros DO Discharging Provider: Deni Quiros DO DS: Diagnosis Problem List Completed Was Problem List Reviewed/Reconciled?: Yes Hospital Course Hospital Course Hospital course: History of Present Illness: Dea Valencia is 65 year old female with PMH of hx of multiple strokes, HTN, HLD, diabetes mellitus type 2 insulin dependent, history of CAD s/p bypass, history of asthma, hx of DVT and PE, presented to the ED from a rehabiliation facility for evaulation of altered mental status and new-onset right facial droop. Patient was admitted for management of altered mental status and stroke work-up. CT head was negative, MRI and MR w/o contrast was negative, but showed severe left-sided sinusitis. ECHO was negative. ED Course: Vitals: 98.0 F, MT 90, RR 20, BP 124/70, 96% O2 saturation on 2 L nasal cannula. Labs: WBC 7.7, Hgb 11.7, PT 11.3 potassium 4.7, anion gap 7, glucose 325, eGFR 51, HbA1c 9.6, TSH 2.33, troponin <0.020 UA: Clear yellow urine, urine glucose 2+, urine nitrate negative, urine leukocyte esterase positive, urine WBC 6, urine bacteria none. Urine toxicology: Urine opiates positive CXR (06/02/2025): negative Head CT (06/02/2025): Negative for acute hemorrhage, mass or midline shift, Global cerebral atrophy and likely chronic ischemic microangiopathy in the cerebral spheres. -In ED, patient received Acetaminophen 650mg po q6hr, Aspirin 325 mg po x1, Insulin lispro 3 nits SC x1, Ondansetron 4mg IV q6hr prn Hospital Course: Initial evaluation of patient reveals no neurological deficits, including right facial droop. Brain MRI and MRA without contrast was negative for recent ischemic infarction, hemorrhage, or intracranial mass, but showed severe left- sided sinusitis. ECHO with bubble study was negative for PFO or ASD, EF 50-55% and RVSP 28mmHg. Started on insulin degludec 10 units HS and DuoNeb q6hrrt prn. Started on Eliquis 5mg po bid, Aspirin 81mg po qd, and Atorvastatin 80mg po qd. The patient was clinically stable and subsequently discharged. #Acute on chronic encephalopathy #Stroke r/o #Hx of multiple strokes #Insulin dependent Type 2 Diabetes Mellitus #Sinusitis #Asthma #UTI #Hx of DVT and PE #Hx of CAD s/p CABG #HLD #Hx Depression Instructions: Complete antibiotic treatment with Augmentin for your urinary tract infection for 2 more days. Maintain all delirium precautions, stay awake during the day, avoid daytime naps, keep bright lights on during the day, make sure patient has regular bowel movements and is not having urinary retention. Hold trazodone, follow-up with primary care physician before resuming. Follow-up with neurologist outpatient, continue aspirin and Eliquis as prescribed. We also recommended cardiology follow-up outpatient. Optimize blood glucose control outpatient, your hemoglobin A1c is 9.6 your blood glucose is very poorly controlled. Continue outpatient physical therapy. Follow-up with primary care physician within 1 week. Recommend anemia workup outpatient. Return to emergency department if your symptoms worsen Assessment and plan discussed with my attending physician Dr. Poole and Dr. Jaime (PGY-2) Dr. Quiros (PGY-1) - Internal medicine resident Status at Discharge Overall status at discharge: patient is progressing back to baseline Time Spent with Patient Time attestation: Total time spent providing and/or coordinating discharge services: Time spent: Greater than 30 minutes Exam Vital Signs Temp Pulse Resp BP Pulse Ox O2 Del Method O2 Flow Rate 97.0 F 82 15 144/82 H 98 Room Air 2 06/03/25 12:00 06/03/25 12:00 06/03/25 12:00 06/03/25 12:00 06/03/25 12:00 06/03/25 12:00 06/02/25 09:30 Narrative Exam General: Elderly, Frail, limited communication, AAO x2 Eye: Normal conjunctiva, no scleral icterus HENT: Normocephalic, atraumatic, hearing intact to conversation at normal volume, moist oral mucosa Neck: Supple, non-tender, no JVD, no lymphadenopathy Lungs: Non-labored respirations, symmetric chest rise, Clear to auscultate bilaterally, No wheezing, rhonchi, crackles Heart: Peripheral pulses intact bilaterally, Regular Rate and Rhythm. Abdomen: Soft, non-tender, non-distended, no palpable masses Musculoskeletal: No cyanosis or edema, No visible joint swelling Skin: Skin is warm, dry, no rashes or lesions. Psychiatric: Cooperative, appropriate mood and affect, Awake and alert, not agitated Neuro: Cranial nerves II-XII grossly intact. Strength 3/5 throughout. Sensations intact to light touch. Discharge Plan Problem List Was Problem List Reviewed/Reconciled?: Yes Plan Patient Disposition: [facility] Patient condition on transfer: Stable Care Plan Goals: Complete antibiotic treatment with Augmentin for your urinary tract infection for 2 more days. Maintain all delirium precautions, stay awake during the day, avoid daytime naps, keep bright lights on during the day, make sure patient has regular bowel movements and is not having urinary retention. Hold trazodone, follow-up with primary care physician before resuming. Follow-up with neurologist outpatient, continue aspirin and Eliquis as prescribed. We also recommended cardiology follow-up outpatient. Optimize blood glucose control outpatient, your hemoglobin A1c is 9.6 your blood glucose is very poorly controlled. Continue outpatient physical therapy. Follow-up with primary care physician within 1 week. Recommend anemia workup outpatient. Return to emergency department if your symptoms worsen Prescriptions/Referrals Prescriptions/Med Rec: New amoxicillin-pot clavulanate 875-125 mg tablet 1 tab PO BID 2 Days Qty: 4 0RF Continued simvastatin [Zocor] 40 MG tablet 40 mg PO QPM Qty: 0 sertraline 100 mg tablet 100 mg PO QDAY Eliquis 5 mg tablet 5 mg PO BID hydrocodone-acetaminophen 5-325 mg tablet 1 tab PO Q4H PRN (Reason: pain) aspirin 81 mg tablet,delayed release (DR/EC) 81 mg PO DAILY ascorbic acid (vitamin C) [Vitamin C] 250 mg tablet 250 mg PO QDAY cholecalciferol (vitamin D3) 25 mcg (1,000 unit) capsule 25 mcg PO QDAY ondansetron HCl 4 mg tablet 4 mg PO Q6H PRN (Reason: nausea and vomiting) magnesium hydroxide [Milk of Magnesia] 400 mg/5 mL suspension 30 ml PO Q72H PRN (Reason: constipation) insulin lispro 100 unit/mL insulin pen 1 sliding scale dose SUBCUT ACHS Rx Instructions: 0-150=0 units, 151-200=2 units, 201-250=4 units, 251-300=6 units, 301-350=8 units, 351-400=10 units, 401+=12 units contact insulin glargine [Lantus Solostar U-100 Insulin] 100 unit/mL (3 mL) insulin pen 15 unit SUBCUT BID Rx Instructions: hold if bs <100 Enema 19-7 gram/118 mL enema 118 ml MT Q72H PRN (Reason: constipation) bisacodyl [Dulcolax (bisacodyl)] 10 mg suppository 10 mg MT Q72H PRN (Reason: constipation) Held trazodone 100 mg Tablet 100 mg PO HS Qty: 0 Hold Instructions: Resume on 06/10/25. Follow up with PCP in 1 week before resuming Referrals: Lucille Jacob MD [Primary Care Provider] Patient/Caregiver Discharge Instructions Discharge Activity: activity as tolerated Education Materials: ED Confusion Print Language: Maldivian Stand Alone Forms: Jaymie Award Info., Patient Portal Info Letter Quality Discharge Quality Measures VTE prophylaxis Attestestation Attestation I have discussed and was present for the essential components of the discharge history, physical examination, diagnosis, and discharge treatment plan with the resident. I agree with the patient's discharge care as documented by the resident and amended herein by me. Garo Tingle, DO. Patient back to baseline mentation, will continue course of Augmentin for sinusitis, probably will need ENT follow-up in the outpatient setting. Although this document has been carefully reviewed, there may still be some phonetic and other typographical errors. These errors are purely grammatical due to imperfections in the software program and should not be construed in any way to compromise the substance of the patient's medical care during this visit.
--- NOTE | 2025-06-03 15:57 | PC.SS ---
SS was informed by Physician Resident, Dr. Ware pt will be ready for dc at 8pm. SS attempted to setup transportation with Damaris from [facility]. Per Damaris, she has limited access and will transfer SS to ride department for assistance. SS has setup gurney transportation with Pinky from [facility] for gurney transportation for 8pm (resident physician's request). Pt will be returning to [facility]..? Ref# [id number].? SS has requested [facility].? Per [facility] equal opportunity representative, [facility] is not a guaranteed transport company.? Estimated time is 3-4 hours.?
--- NOTE | 2025-06-03 16:27 | PC.SS ---
Estimated time is 3-4 hours.? SS has sent patient?s facesheet and ambulance form to [facility] using [employer].? SS has spoken to at [facility] who has placed pt on will call list until she has been contacted by [facility]. Bedside nurse is aware transport time is 8pm to [facility]. Francisca from [facility] is aware. Abdulaziz HERNANDEZ is aware.
--- NOTE | 2025-06-03 17:27 | PD.RESCONSUL ---
HPI Data of Consult Consult date: 06/03/25 Requesting Physician: Dorian Poole DO Admitting Provider: Enmanuel Myles MD Attending Provider: Duane Bass MD Primary Care Provider: Lucille Jacob MD Consult Narrative History of present illness: Ms Vale is a 65-year-old female with past medical history of multiple CVAs with residual memory loss, CAD s/p CABG, primary hypertension, hyperlipidemia, type2 IDDM, history of DVT and PE on Eliquis, who was brought from a alf facility for evaluation of altered mental status and new onset right-sided facial droop. Per family, patient's condition has deteriorated since her CVAs in the past. Urine analysis grossly positive for UTI. Primary team has started treatment with antibiotics empirically. Head CT and MRIB ruled out acute CVA, symptoms have resolved. Echo is negative for bubble study. Primary team has ordered discharge, after being cleared by physical therapy and speech therapy. 1900 on 06/03/2025: Patient seen and evaluated at bedside, no facial asymmetry mnoted. Patient was grumpy and non compliant with exam. No obvious extremity weakness. Likely a TIA. Evident white matter changes on MRIB. No antiplatelet therapy needed at this time. Patient is safe to DC back to SNF. cc:: cc: Dorian Poole DO Review of Systems Review of Systems Narrative Review of Systems: GENERAL: Denies fevers/chills, diaphoresis. HEENT: Denies headache or visual/hearing changes. Denies nasal discharge. NEURO: Denies unusual weakness or difficulty speaking. CARDIO: Denies chest pain, palpitations. PULM: Denies SOB, cough, wheezing. GI: Denies abdominal pain, no N/V, no C/D. Reports having BMs URO: Denies burning/itching/pain/urinary changes. BARREL DRAINER: Denies menstrual changes, hot flashes. MSK/EXT/SKIN: Denies skeletal/muscle pain, changes in upper or lower extremities, itchiness, superficial skin chnages. PSYCH: Cooperative, pleasant mood & affect. The rest of the review of systems is otherwise negative. Exam Vital Signs Temp Pulse Resp BP Pulse Ox O2 Del Method O2 Flow Rate 96.6 F L 72 16 137/56 H 98 Room Air 2 06/03/25 16:00 06/03/25 16:00 06/03/25 16:00 06/03/25 16:00 06/03/25 16:00 06/03/25 16:00 06/02/25 09:30 Narrative Exam Constitutional Alert, oriented x2 to place and person only, elderly. Obese BMI 30 HEENT Vision grossly intact, PERRLA. Patent nares. Trachea midline. Respiratory Chest normal on inspection and clear to auscultation bilaterally. Cardiovascular S1 and S2 audible, RRR. No murmurs or carotid bruit. No gross JVD. Abdominal Soft and BS + ; non tender to palpation in all quadrants. Musculoskeletal Extremities tone within normal limits. No LE edema. Neurological CN II - XII intact, b/l facial symmetry. Unable to evaluate LE strength as uncooperative, UE strength and sensation intact. Skin Warm, dry and intact. No apparent lesions. Psychiatric Patient is agitated, is not cooperative with the exam. Results Labs 06/02/25 09:48 06/02/25 09:48 ABG Interpretation ABG results: 06/02/25 10:41 ABG pH Cancelled ABG pCO2 Cancelled ABG pO2 Cancelled ABG HCO3 Cancelled ABG O2 Saturation Cancelled ABG Base Excess Cancelled Quality Measures Quality Measures VTE prophylaxis Medications Home Medications and Allergies Home Medications ?Medication ?Instructions ?Recorded ?Confirmed ?Type simvastatin 40 mg tablet (Zocor) 40 mg PO QPM High Cholesterol #0 10/23/15 06/03/25 History tabs trazodone 100 mg tablet 100 mg PO HS Depression #0 tabs 10/23/15 06/03/25 History Held on 06/03/25. Instructions: Resume on 06/10/25. Follow up with PCP in 1 week before resuming sertraline 100 mg tablet 100 mg PO QDAY 04/16/19 06/03/25 History apixaban 5 mg tablet (Eliquis) 5 mg PO BID 06/03/25 06/03/25 History ascorbic acid (vitamin C) 250 mg 250 mg PO QDAY 06/03/25 06/03/25 History tablet (Vitamin C) aspirin 81 mg tablet,delayed 81 mg PO DAILY 06/03/25 06/03/25 History release bisacodyl 10 mg rectal suppository 10 mg MT Q72H PRN constipation 06/03/25 06/03/25 History (Dulcolax (bisacodyl)) cholecalciferol (vitamin D3) 25 25 mcg PO QDAY 06/03/25 06/03/25 History mcg (1,000 unit) capsule hydrocodone 5 mg-acetaminophen 325 1 tab PO Q4H PRN pain 06/03/25 06/03/25 History mg tablet insulin glargine 100 unit/mL (3 15 unit subcut BID 06/03/25 06/03/25 History mL) subcutaneous pen (Lantus Solostar U-100 Insulin) insulin lispro 100 unit/mL 1 sliding scale dose subcut ACHS 06/03/25 06/03/25 History subcutaneous pen magnesium hydroxide 400 mg/5 mL 30 ml PO Q72H PRN constipation 06/03/25 06/03/25 History oral suspension (Milk of Magnesia) ondansetron HCl 4 mg tablet 4 mg PO Q6H PRN nausea and vomiting 06/03/25 06/03/25 History sodium phosphates 19 gram-7 118 ml MT Q72H PRN constipation 06/03/25 06/03/25 History gram/118 mL enema (Enema) Allergies Allergy/AdvReac Type Severity Reaction Status Date / Time codeine Allergy Intermediate BURNING Verified 04/16/19 07:53 SENSATION (ALLERGY ONLY TO CODEINE TABLETS) Visit Medications Acetaminophen (Acetaminophen 325 Mg Tablet) 650 mg PO Q6H PRN PRN Reason: Fever >100.4, Pain 1-3 Stop: 07/02/25 12:19 Albuterol/Ipratropium (Albuterol/Ipratropium (Duoneb) Rt Jailyn 3 Ml Nebu) 3 ml INH Q6HRRT PRN PRN Reason: SOB/Wheeze Stop: 07/02/25 18:59 Apixaban (Apixaban 2.5 Mg Tablet) 5 mg PO BID ILDA Stop: 06/23/25 20:59 Last Admin: 06/03/25 08:38 Dose: 5 mg Aspirin (Aspirin Ec 81 Mg Tabec) 81 mg PO QDAY ILDA Stop: 07/03/25 08:59 Last Admin: 06/03/25 08:38 Dose: 81 mg Atorvastatin Calcium (Atorvastatin Calcium 20 Mg Tablet) 80 mg PO HS ILDA Stop: 07/02/25 20:59 Last Admin: 06/02/25 21:17 Dose: 80 mg Dextrose (Dextrose 50%-Water Inj 50 Ml Syringe) 25 ml IV Q15MIN PRN PRN Reason: BG 50-70 responsive npo pt Stop: 07/02/25 13:58 Dextrose (Dextrose 50%-Water Inj 50 Ml Syringe) 50 ml IV Q15MIN PRN PRN Reason: BG <50 OR BG <70 & pt unresponsive Stop: 07/02/25 13:58 Glucagon (Glucagon Inj 1 Mg Vial) 1 mg IM Q15MIN PRN PRN Reason: BG <70, and no IV access Ceftriaxone Sodium/Dextrose (Rocephin/D5w 1gm Iv Premix) 1 gm in 50 mls @ 100 mls/hr IV QDAY ILDA Stop: 06/09/25 17:29 Last Admin: 06/03/25 08:38 Dose: 100 mls/hr Insulin Degludec (Insulin Degludec 5 Unit/0.05 Ml (Per 5 Units)) 15 unit SC QDAY [facility] Stop: 07/03/25 08:59 Last Admin: 06/03/25 09:18 Dose: 15 unit Insulin Human Lispro (Insulin Lispro (Admelog) 1 Unit/0.01 Ml Unit) 0 unit SC ACHS [facility]; Protocol Stop: 07/02/25 16:59 Last Admin: 06/03/25 12:30 Dose: 5 unit Insulin Human Lispro (Insulin Lispro (Admelog) 1 Unit/0.01 Ml Unit) 3 unit SC AC [facility] Stop: 07/03/25 16:59 Ondansetron HCl (Ondansetron Inj 2 Mg/Ml Inj 2 Ml) 4 mg IVP Q6H PRN; Protocol PRN Reason: NAUSEA OR VOMITING Stop: 07/02/25 12:19 Discontinued Medications Albuterol/Ipratropium (Albuterol/Ipratropium (Duoneb) Rt Jailyn 3 Ml Nebu) 3 ml INH Q6HRRT ILDA Stop: 07/02/25 18:59 Last Admin: 06/03/25 06:42 Dose: 3 ml Aspirin (Aspirin 325 Mg Tablet) 325 mg PO X1 ONE Stop: 06/02/25 11:14 Last Admin: 06/02/25 11:24 Dose: 325 mg Heparin Sodium (Porcine) (Heparin Sod Inj 5000 Unit/Ml Vial) 5,000 unit SC Q12HR ILDA Stop: 06/16/25 12:29 Last Admin: 06/02/25 12:51 Dose: 5,000 unit Insulin Degludec (Insulin Degludec 5 Unit/0.05 Ml (Per 5 Units)) 10 unit SC QDAY ILDA Stop: 07/02/25 14:44 Last Admin: 06/02/25 18:07 Dose: 10 unit Insulin Degludec (Insulin Degludec 5 Unit/0.05 Ml (Per 5 Units)) 15 unit SC QDAY ILDA Stop: 07/03/25 08:59 Insulin Human Lispro (Insulin Lispro (Admelog) 1 Unit/0.01 Ml Unit) 3 unit SC X1 ONE Stop: 06/02/25 11:02 Last Admin: 06/02/25 11:27 Dose: 3 unit Insulin Human Lispro (Insulin Lispro (Admelog) 1 Unit/0.01 Ml Unit) 0 unit SC ACHS ILDA; Protocol Stop: 07/02/25 16:59 Insulin Human Lispro (Insulin Lispro (Admelog) 1 Unit/0.01 Ml Unit) 0 unit SC ACHS ILDA; Protocol Stop: 07/02/25 16:59 Last Admin: 06/02/25 18:09 Dose: 3 unit Assessment & Plan Plan Patient is a 65 year old female admitted for altered mentation and acute onset RT facial droop. CVA, ruled out - likely TIA RT sided facial droop - resolved Ground level Fall Hx of multiple CVAs w/ memory deficits - CT head w/o: negative for acute hemorrhage, mass effect, midline shift - Brain MRI: negative, remarkable for white matter changes - ECHO with bubble study: negative for PFO - Patient's son reported progressive worsening of patient's forgetfulness and weakness. - An episode of fall at rehab - Patient didn't have facial droop on examination, resolved within 24 hours Recommendations: - Patient is back to baseline, is safe to DC back to SNF - Continue Eliquis 5mg po bid, Aspirin 81mg po qd, and Atorvastatin 80mg po qd. Other medical problems managed per primary team plan. Thank you for the consult. Neurology will continue to follow the case with you. Plan of care discussed with attending Neurologist Dr Bass, - Enmanuel Myles M.D. PGY3 Disclaimer: Minor errors in transcription manager may be present as this note was dictated using voice recognition software.
[2025-06-03] MEDS: INSULIN LISPRO (AdmeLOG) 1 UNIT/0.01 ML UNIT 3 UNIT SC (18:11)
[2025-06-03] MEDS: ATORVASTATIN CALCIUM 20 MG TABLET 80 MG PO (20:35)
== END 2025-06-03 21:48 | disposition skilled nursing facility (03) ==
LOC: SERX 12:27 → SERHOLD 12:45 → S2NX 06-03 06:05 → SERHOLD 06-03 06:43 → S2NX 06-03 06:43
PROVIDERS: Admitting Provider Student in an Organized Health Care Education/Training Program; Emergency Provider Emergency Medicine; PCP Hospitalist; Visit Provider Student in an Organized Health Care Education/Training Program
DX: G93.49 Other encephalopathy (principal); Z86.73 Personal history of transient ischemic attack (TIA), and cerebral infarction without residual deficits; E11.9 Type 2 diabetes mellitus without complications; J45.909 Unspecified asthma, uncomplicated; J32.9 Chronic sinusitis, unspecified; N39.0 Urinary tract infection, site not specified; Z86.718 Personal history of other venous thrombosis and embolism; Z95.1 Presence of aortocoronary bypass graft; E78.5 Hyperlipidemia, unspecified; F32.A Depression, unspecified
CPT/HCPCS: 36415; 36600; 51701; 70450; 70544; 71045; 80053; 80307; 80320; 80329; 81001; 82140; 82607; 82746; 82803; 83036; 83735; 84100; 84443; 84484; 85025; 85610; 85730; 87040; 87081; 87086; 92610; 93005; 93306; 94640; 96365; 96372; 97162; 99284; A9270; G0378; J0696; J1644; J1815; G0480